=== PATIENT | female | born 1990 | race Caucasian/White ===

== ENCOUNTER 2016-12-28 05:30 | Emergency (ER) | payer SELFPAY ==
[~2016-12-28] VITALS: Ht 167.6 cm; Wt 68.2 kg
[2016-12-28 05:33] VITALS: BP 170/86; PULSE 88; TEMP 97.8
[2016-12-28] MEDS ORDERED: TYLENOL W/COD1 UDTAB PO (06:11)
[2016-12-28] MEDS ORDERED: CLEOCIN HC150 MG/CAP PO (06:11)
== END 2016-12-28 06:25 | disposition home or self-care (01) ==
LOC: COL.ER 05:30
DX: L03.115 Cellulitis of right lower limb (principal); I73.1 Thromboangiitis obliterans [Buerger's disease]; Z89.022 Acquired absence of left finger(s); F43.10 Post-traumatic stress disorder, unspecified; F17.210 Nicotine dependence, cigarettes, uncomplicated